=== PATIENT | female | born 1980 | race Caucasian/White ===

== ENCOUNTER 2018-05-30 10:03 | Outpatient (CLI) | payer OTHER ==
--- NOTE | 2018-05-30 14:37 | MRI ---
MRI BRAIN WITH AND WITHOUT CONTRAST: DATE: 05/30/2018 HISTORY: Follow up meningioma in a 37-year-old female. COMPARISON: 05/21/2016 and 06/06/2015 and 10/23/2014. TECHNIQUE: Multiple sequences obtained in axial, sagittal, and coronal planes; pre and post IV injection of gado linium-based contrast agent: MultiHance 13 mL. FINDINGS: Deep to the posterior craniotomy changes, again noted is the right parasagittal, posterior extraaxial enhancing mass, abutting the craniotomy bone flap, and extrinsically markedly compressing, distortin g, and narrowing a short segment of the posterior aspect of the superior sagittal sinus. Despite thi s, there is demonstration of blood flow in the rest of the superior sagittal sinus and the torcular h erophili. On the post contrast T1 weighted images, the measurements are approximately 2.1 x 1.6 x 1 cm. It has not significantly changed since 05/21/2016. It has slightly grown compared to 2014. A t iny curvilinear focus of T2 hyperintensity around the mass, represents a cleft of CSF. A tiny curvil inear focus of hyperintensity on the FLAIR sequence probably represents gliosis, and less likely a mi nimal amount of vasogenic edema. The rest of the brain parenchyma has no signal abnormalities. The ventricles are normal in size and configuration. No restricted diffusion. No interval change overal l since 05/21/2016. IMPRESSION: 1. Small right posterior paramedian parieto-occipital meningioma. 2. Minimal, very slow interval growth compared to 06/06/2015 and 10/23/2014. No interval change sin ce 05/21/2016. 3. The mass significantly compresses the superior sagittal sinus. 4. Posterior old craniotomy changes. 5. Continued followup is recommended. KAEL Gatica POS: BRINDA
== END 2018-05-30 10:04 | disposition home or self-care (01) ==
LOC: SCSMRI 10:03
PROVIDERS: ATTEND Psychiatry & Neurology Neurology
DX: D32.0 Benign neoplasm of cerebral meninges (principal)
CPT/HCPCS: 70553

== ENCOUNTER 2020-01-29 12:26 | Outpatient (CLI) | payer OTHER ==
[~2020-01-29 12:26] MED LIST: Magnevist 469MG/ML 20 ML VIAL ONE
--- NOTE | 2020-01-29 13:56 | MRI ---
EXAM: MRI of the brain without and with contrast HISTORY: Headaches. Meningioma. COMPARISON: 05/30/2018 TECHNIQUE: Multiplanar multisequence MR images were obtained of the brain without and with IV contras t. FINDINGS: There is a stable well-circumscribed 2.0 cm extra-axial mass along the posterior aspect of the transv erse sinus in the right parietal region. No restricted diffusion. No hydronephrosis. No extra-axial fluid collection or intracranial hemorrhage. The expected flow voids are present. Corpus callosum, pituitary, and craniocervical junction are within normal limits. The calvarium and overlying soft tissues are unremarkable. The paranasal sinuses and mastoid air cells are well aerated. IMPRESSION: Stable right posterior meningioma
== END 2020-01-29 12:27 | disposition home or self-care (01) ==
LOC: BICMRI 12:26
PROVIDERS: ATTEND Nurse Practitioner Acute Care
DX: D32.9 Benign neoplasm of meninges, unspecified (principal)
CPT/HCPCS: 70553; A9579

== ENCOUNTER 2020-11-29 08:35 | Outpatient (CLI) | payer OTHER | END 2020-11-29 08:36 | disposition home or self-care (01) | LOC: BICRAD 08:35 | PROVIDERS: ATTEND Neurological Surgery | DX: M54.2 Cervicalgia (principal); M47.812 Spondylosis without myelopathy or radiculopathy, cervical region | CPT/HCPCS: 72040 ==

== ENCOUNTER 2021-12-05 12:56 | Outpatient (CLI) | payer OTHER | END 2021-12-05 12:57 | disposition home or self-care (01) | LOC: SCSMRI 12:56 | DX: D32.0 Benign neoplasm of cerebral meninges (principal) | CPT/HCPCS: 70544; 70553 ==

== ENCOUNTER 2023-08-27 11:46 | Outpatient (CLI) | payer OTHER | END 2023-08-27 11:47 | disposition home or self-care (01) | LOC: SCSMRI 11:46 | PROVIDERS: ATTEND Nurse Practitioner Family | DX: D32.0 Benign neoplasm of cerebral meninges (principal); G93.89 Other specified disorders of brain | CPT/HCPCS: 70544; 70553 ==

== ENCOUNTER 2025-04-13 10:43 | Outpatient (CLI) | payer OTHER | END 2025-04-13 10:44 | disposition home or self-care (01) | LOC: SCSMRI 10:43 | PROVIDERS: ATTEND Physician Assistant | DX: M54.6 Pain in thoracic spine (principal); R10.2 Pelvic and perineal pain; Z98.890 Other specified postprocedural states | CPT/HCPCS: 72146; 72197 ==